=== PATIENT | female | born 1940 | race Caucasian/White ===

== ENCOUNTER 2016-12-21 21:01 | Inpatient (IN) | payer MEDICARE, BC ==
[~2016-12-21] VITALS: Ht 170.2 cm; Wt 97.5 kg
[~2016-12-21 21:01] MED LIST: CARV12.52 PO; DOCU-25 PO; PARO10OR3 PO; Rivaroxaban PO
--- NOTE | 2016-12-21 21:25 | NUR ---
BLOOD DRAWN AND BLOOD CULTURES X 2 DRAWN.
--- NOTE | 2016-12-21 21:26 | NUR ---
CXR IN PROGRESS AT THE BEDSIDE.
[2016-12-21 21:30] LABS: BASOPHILS % (AUTO) 0.7 % (0.0-2.0); EOSINOPHILS # (AUTO) 0.4 /CMM (0.0-0.7); HEMATOCRIT 42 % (33-45); HEMOGLOBIN 14.3 g/dL (11.5-14.8); LYMPHOCYTES # (AUTO) 1.9 /CMM (0.8-4.8); LYMPHOCYTES % (AUTO) 31.3 % (20.0-44.0); MEAN CORPUSCULAR HEMOGLOBIN 32 PG (26.0-33.0); MEAN CORPUSCULAR HGB CONC 34 g/dl (31.0-36.0); MEAN CORPUSCULAR VOLUME 94 fL (82-100); MONOCYTES # (AUTO) 0.6 /CMM (0.1-1.30); MONOCYTES % (AUTO) 10.1 % (2.0-12.0); NEUTROPHILS # (AUTO) 3.2 /CMM (1.8-8.9); NEUTROPHILS % (AUTO) 50.9 % (43.0-81.0); PLATELET COUNT (AUTO) 187 /CMM (150-450); RDW COEFFICIENT OF VARIATION 11.3 (11.5-15.0); RED BLOOD CELL COUNT(AUTO) 4.45 MIL/uL (4.0-5.2); WHITE BLOOD COUNT (AUTO) 6.1 K/uL (4.3-11.0)
[2016-12-21] MEDS ORDERED: IV NS 0.9% 1,000 ML BAG IV ONE (21:30)
[2016-12-21 21:39] LABS: CALCIUM, SERUM 8.9 mg/dL (8.5-10.1); CARBON DIOXIDE 31 mmol/L (21-32); CHLORIDE 106 mmol/L (98-107); CREATININE 0.9 mg/dL (0.6-1.3); GLUCOSE 137 mg/dL (74-106); SODIUM SERUM 139 mmol/L (136-145); UREA NITROGEN, BLOOD 12 mg/dL (7-18)
[2016-12-21 21:44] LABS: PROTHROMBIN TIME 10.4 SECS (9.5-12.7)
[2016-12-21] MEDS ORDERED: IV SET PRIMARY 1 EA INFUS.SET MC ONE (21:45)
[2016-12-21] MEDS ORDERED: IV NS 0.9% 1,000 ML ONE (21:45)
[2016-12-21 21:52] LABS: ALANINE AMINOTRANSFERASE 29 U/L (12-78); ALBUMIN 3.3 g/dL (3.4-5.0); ALKALINE PHOSPHATASE 87 U/L (46-116); ASPARTATE AMINOTRANSFERASE 21 U/L (15-37); B-TYPE NATRIURETIC PEPTIDE 33 PG/ML (0-125); BILIRUBIN,DIRECT 0.1 mg/dL (0.0-0.2); BILIRUBIN,TOTAL 0.5 mg/dL (0.2-1.0); TOTAL PROTEIN, SERUM 6.5 g/dL (6.4-8.2)
--- NOTE | 2016-12-21 22:20 | NUR ---
CALLED NURSING OFFICE SERVICES CLERK FOR M/S BED
--- NOTE | 2016-12-21 22:25 | NUR ---
CALLED NURSING NAMED ACCOUNT EXECUTIVE FOR TELE BED
--- NOTE | 2016-12-21 22:27 | NUR ---
PT WILL GO TO BED 326.2
[2016-12-21] MEDS ORDERED: IV SET PRIMARY PUMP SET 1 EA INFUS.SET MC ONE ×2 (22:35→23:44)
[2016-12-21] MEDS ORDERED: LEVOFLOXACIN 750 MG /D5W 150ML 150 ML IV ONE (22:35)
[2016-12-21 22:51] LABS: APPEARANCE,URINE CLEAR (CLEAR); BILIRUBIN,URINE NEGATIVE (NEGATIVE); BLOOD, URINE NEGATIVE Ery/uL (NEGATIVE); COLOR,URINE YELLOW (YELLOW); KETONES,URINE NEGATIVE (NEGATIVE); LEUKOCYTE ESTERASE ,URINE TRACE (NEGATIVE); NITRITE, URINE NEGATIVE (NEGATIVE); PROTEIN,URINE NEGATIVE (NEGATIVE); UGLUCOSE NEGATIVE (NEGATIVE); UROBILINOGEN,URINE 0.2 EU/dL (0.2)
[2016-12-21] MEDS ORDERED: OLAN10TA3 PO (22:55)
[2016-12-21] MEDS ORDERED: ARIP15TA2 PO (22:55)
[2016-12-21] MEDS ORDERED: QUET300T2 PO (22:55)
[2016-12-21] MEDS ORDERED: TEMA15CA5 PO (22:55)
[2016-12-21] MEDS ORDERED: MECL-102 PO (22:55)
[2016-12-21] MEDS ORDERED: FOLI-65 PO (22:55)
[2016-12-21] MEDS ORDERED: GRALISE PO (22:55)
[2016-12-21] MEDS ORDERED: RAME8TAB9 PO (22:55)
[2016-12-21] MEDS ORDERED: LORA1TAB82 PO (22:55)
[2016-12-21] MEDS ORDERED: BENZ200C45 PO (22:55)
[2016-12-21] MEDS ORDERED: TIZA4CAP PO (22:55)
[2016-12-21] MEDS ORDERED: MIRT45TA PO (22:55)
[2016-12-21] MEDS ORDERED: EDOX30TA PO (22:55)
--- NOTE | 2016-12-21 22:55 | NUR ---
DR. ANDRES IS AT THE BEDSIDE.
--- NOTE | 2016-12-21 22:59 | NUR ---
REPORT GIVEN TO RAÚL GONZALEZ
[2016-12-21] MEDS ORDERED: LEVOFLOXACIN 750 MG /D5W 150ML PIGGYBACK IV ONE (23:00)
--- NOTE | 2016-12-21 23:00 | NUR ---
PT'S CAREGIVER ARRIVED BACK WITH MED LIST.
[2016-12-21] MEDS ORDERED: CAND4TAB3 PO (23:03)
[2016-12-21] MEDS ORDERED: CEPH-570 PO (23:03)
[2016-12-21 23:07] LABS: BACTERIA,URINE None seen /HPF (None Seen); RBC,URINE 0-2 /HPF (0-2); SQUAMOUS EPITHELIAL CELL,UR Rare /HPF (None Seen)
--- NOTE | 2016-12-21 23:15 | NUR ---
CASH GRAIN GROWER ADMIT PT ARRIVED ON UNIT WITH CAREGIVER. PT AAOX1-2. C/O SLIGHT CHEST DISCOMFORT 07/26 "DUE TO COUGH", NO S/S OF RESPIRATORY DISTRESS. ON 2 NC. NON-PRODUCTIVE COUGH NOTED. TELE SHOWS SR IN 60'S. ASSESSMENT COMPLETE. PT BEDBOUND, SKIN ISSUES NOTED. L WRIST #20 IV INTACT, TOLERATING ABX FROM E.R. WELL. ORIENTATED TO UNIT AND CALL LIGHT. WILL CONT TO MONITOR.
[2016-12-21] MEDS ORDERED: LORAZEPAM 1 MG TABLET PO PRN (23:30)
[2016-12-21] MEDS ORDERED: ENOXAPARIN SODIUM 40 MG/0.4 ML DISP.SYRIN SQ SCH (23:30)
[2016-12-21] MEDS ORDERED: ACETAMINOPHEN 325 MG TABLET PO PRN (23:30)
[2016-12-21] MEDS ORDERED: LEVOFLOXACIN 750 MG /D5W 150ML 750 MG in PREMIX 1 EA IV SCH (23:30)
[2016-12-21] MEDS ORDERED: HYDROCODONE/APAP 5/325MG 1 EACH TABLET PO PRN (23:30)
[2016-12-21] MEDS ORDERED: MAGNESIUM HYDROXIDE 30 ML UDC PO PRN (23:30)
[2016-12-21] MEDS ORDERED: Z GUARD REMEDY 2 OZ OINT TP PRN (23:30)
[2016-12-21] MEDS ORDERED: ONDANSETRON HCL/PF 4 MG/2 ML VIAL IVP PRN (23:30)
[2016-12-21] MEDS ORDERED: MECLIZINE HCL 25 MG TABLET PO PRN (23:30)
[2016-12-21] MEDS ORDERED: MAG HYDROX/AL HYDROX/SIMETH 30 ML UDC PO PRN (23:30)
[2016-12-21] MEDS ORDERED: ZOLPIDEM TARTRATE 5 MG TABLET PO PRN (23:30)
[2016-12-21] MEDS ORDERED: SECONDARY IV SET 1 EA INFUS.SET MC ONE (23:44)
[2016-12-22] MEDS ORDERED: Z GUARD REMEDY 2 OZ OINT TP PRN (04:30)
--- NOTE | 2016-12-22 06:50 | NUR ---
RN NOTE NO SIGNIFICANT CHANGES AT NIGHT. PT SLEPT WELL. NO C/O ANY PAIN OR DISCOMFORT AT THIS TIME. IV INTACT AND PATENT, TOLERATING FLUIDS WELL. TELE SHOWS SR IN 70'S. CAREGIVER AT BEDSIDE. NO DISTRESS NOTED. WILL F/U WITH DAY SHIFT FOR EZEQUIEL. CALL LIGHT IN REACH.
--- NOTE | 2016-12-22 07:30 | NUR ---
PT RECEIVED RESTING COMFORTABLY IN BED WITH EYES CLOSED. NO S/S OR C/O PAIN OR DISTRESS NOTED. SIDE RAILS UP X2, CALL LIGHT LEFT WITHIN REACH. WILL CONTINUE PLAN OF CARE.
[2016-12-22 07:34] LABS: BASOPHILS % (AUTO) 0.3 % (0.0-2.0); EOSINOPHILS # (AUTO) 0.5 /CMM (0.0-0.7); EOSINOPHILS % (AUTO) 7.5 % (0.0-6.0); HEMATOCRIT 38 % (33-45); HEMOGLOBIN 13.2 g/dL (11.5-14.8); LYMPHOCYTES # (AUTO) 2.2 /CMM (0.8-4.8); LYMPHOCYTES % (AUTO) 35.9 % (20.0-44.0); MEAN CORPUSCULAR HEMOGLOBIN 32 PG (26.0-33.0); MEAN CORPUSCULAR HGB CONC 35 g/dl (31.0-36.0); MEAN CORPUSCULAR VOLUME 94 fL (82-100); MONOCYTES # (AUTO) 0.7 /CMM (0.1-1.30); MONOCYTES % (AUTO) 10.8 % (2.0-12.0); NEUTROPHILS # (AUTO) 2.7 /CMM (1.8-8.9); NEUTROPHILS % (AUTO) 45.5 % (43.0-81.0); PLATELET COUNT (AUTO) 163 /CMM (150-450); RDW COEFFICIENT OF VARIATION 12.1 (11.5-15.0); RED BLOOD CELL COUNT(AUTO) 4.07 MIL/uL (4.0-5.2)
[2016-12-22 07:53] LABS: ALANINE AMINOTRANSFERASE 26 U/L (12-78); ALBUMIN 2.7 g/dL (3.4-5.0); ALKALINE PHOSPHATASE 74 U/L (46-116); ASPARTATE AMINOTRANSFERASE 16 U/L (15-37); BILIRUBIN,TOTAL 0.4 mg/dL (0.2-1.0); CALCIUM, SERUM 7.9 mg/dL (8.5-10.1); CARBON DIOXIDE 27 mmol/L (21-32); CHLORIDE 108 mmol/L (98-107); CREATININE 0.8 mg/dL (0.6-1.3); GLUCOSE 100 mg/dL (74-106); MAGNESIUM 1.9 mg/dL (1.8-2.4); PHOSPHORUS 2.9 mg/dL (2.5-4.9); POTASSIUM 3.9 mmol/L (3.5-5.1); SODIUM SERUM 143 mmol/L (136-145); TOTAL PROTEIN, SERUM 5.7 g/dL (6.4-8.2); UREA NITROGEN, BLOOD 9 mg/dL (7-18)
[2016-12-22 08:00] VITALS: BP 109/66
[2016-12-22] MEDS ORDERED: QUETIAPINE FUMARATE 100 MG TABLET PO SCH (09:00)
[2016-12-22] MEDS ORDERED: GABAPENTIN PO SCH (09:00)
[2016-12-22] MEDS: CANDESARTAN CILEXETIL 4 MG TABLET PO SCH (10:00)
[2016-12-22] MEDS ORDERED: PAROXETINE HCL 10 MG TABLET PO SCH (10:00)
[2016-12-22] MEDS ORDERED: SIMV40TA2 PO (10:33)
[2016-12-22] MEDS ORDERED: GABA-534 PO (10:33)
[2016-12-22] MEDS ORDERED: MIRTAZAPINE 15 MG TABLET PO SCH (10:57)
[2016-12-22] MEDS ORDERED: MIRTAZAPINE 45 MG TABLET PO SCH (11:00)
[2016-12-22] MEDS: ARIPIPRAZOLE 5 MG TABLET PO SCH (12:13)
[2016-12-22] MEDS: DOCUSATE SODIUM 100 MG CAPSULE PO SCH ×2 (12:14→17:27)
[2016-12-22] MEDS: OLANZAPINE 10 MG TABLET PO SCH (12:15)
[2016-12-22] MEDS: PANTOPRAZOLE 40 MG TABLET.DR PO SCH (12:15)
[2016-12-22] MEDS: LORAZEPAM 1 MG TABLET PO SCH (12:15)
[2016-12-22] MEDS: IV NS 0.9% 1,000 ML IV PRN (12:52)
[2016-12-22] MEDS ORDERED: CARV3.122 PO (15:51)
[2016-12-22 16:00] VITALS: BP 138/74
[2016-12-22] MEDS: ALBUTEROL FS 2.5 MG/0.5 ML VIAL.NEB NEB SCH ×2 (16:27→19:49)
[2016-12-22] MEDS: ACETYLCYSTEINE 10% SOLN 400 MG/4 ML VIAL NEB SCH (16:27)
[2016-12-22] MEDS: IPRATROPIUM NEB FS 0.5 MG/2.5 ML AMPUL.NEB NEB SCH ×2 (16:27→19:49)
[2016-12-22] MEDS ORDERED: RIVAROXABAN PO SCH (17:00)
[2016-12-22] MEDS: ROZEREM 8 MG PO SCH (17:27)
[2016-12-22] MEDS: QUETIAPINE FUMARATE 100 MG TABLET PO SCH (17:27)
[2016-12-22] MEDS: GABAPENTIN 300 MG CAPSULE PO SCH (17:27)
[2016-12-22] MEDS ORDERED: SAVAYSA 30 MG PO SCH (19:00)
--- NOTE | 2016-12-22 19:47 | NUR ---
CHANGE OF SHIFT REPORT PT RESTING COMFORTABLY IN BED WITH EYES CLOSED. NO S/S OR C/O PAIN OR DISTRESS NOTED. SIDE RAILS UP X2, CALL LIGHT LEFT WITHIN REACH. PT KEPT CLEAN, DRY, AND COMFORTABLE. NO SIGNIFICANT CHANGES SINCE PREVIOUS SHIFT. REPORT GIVEN TO GALLO OLSEN.
[2016-12-22 20:00] VITALS: BP 111/58
--- NOTE | 2016-12-22 20:00 | NUR ---
MS OPENING NOTES: RECEIVED PT RESTING COMFORTABLY IN BED. RESPIRATION EVEN AND UNLABORED. NO S/S OR C/O PAIN OR DISTRESS NOTED. IVF ON LEFT WRIST #20 NS @75 ML/HR. PATENT AND INTACT. INFUSING WELL. KEPT CLEAN AND DRY AT ALL TIMES. BED IN LOW AND LOCKED POSITION. SIDERAILS UPX2. CALL LIGHT WITHIN REACH. WILL CONTINUE TO MONITOR.
[2016-12-22] MEDS: SAVAYSA 60 MG PO SCH (21:46)
[2016-12-22] MEDS: MIRTAZAPINE 15 MG TABLET PO SCH (21:47)
[2016-12-22] MEDS: BENZONATATE 100 MG CAPSULE PO SCH (21:47)
[2016-12-22] MEDS: TIZANIDINE HCL 4 MG TABLET PO SCH (21:47)
[2016-12-22] MEDS: PAROXETINE HCL 10 MG TABLET PO SCH (21:47)
[2016-12-22] MEDS: SIMVASTATIN 40 MG TABLET PO SCH (21:48)
[2016-12-22] MEDS: TEMAZEPAM 15 MG CAPSULE PO SCH (21:48)
[2016-12-22] MEDS: LEVOFLOXACIN 750 MG /D5W 150ML 750 MG in PREMIX 1 EA IV SCH (22:27)
[2016-12-23] MEDS: ACETYLCYSTEINE 10% SOLN 400 MG/4 ML VIAL NEB SCH ×3 (00:08→14:30)
[2016-12-23] MEDS: IV NS 0.9% 1,000 ML IV PRN ×2 (02:12→17:00)
--- NOTE | 2016-12-23 06:45 | NUR ---
MS CLOSING NOTES: PT RESTING COMFORTABLY IN BED. RESPIRATION EVEN AND UNLABORED. NO SOB. NO S/S OR C/O PAIN OR DISTRESS NOTED. IVF ON LEFT WRIST #20 NS @75 ML/HR. PATENT AND INTACT. INFUSING WELL. KEPT CLEAN AND DRY AT ALL TIMES. BED IN LOW AND LOCKED POSITION. SIDERAILS UPX2. CALL LIGHT WITHIN REACH. WILL ENDORSE TO NEXT SHIFT NURSE FOR CONTINUITY OF CARE.
--- NOTE | 2016-12-23 07:33 | NUR ---
RN OPENING NOTES RECEIVED PATIENT IN BED, AWAKE, HEAD OF BED ELEVATED, NO SOB OR DISTRESS NOTED, ON O2 @ 2LPM VIA NC AND TOLERATED WELL. A/O X 1-2, VERBALLY RESPONSIVE AND ABLE TO MAKE NEEDS KNOWN. IV INTACT AND PATENT. KEPT PATIENT IN BED, CALL LIGHT WITHIN PATIENT REACH. WILL CONTINUE TO MONITOR ACCORDINGLY.
[2016-12-23 07:38] LABS: BASOPHILS % (AUTO) 0.3 % (0.0-2.0); EOSINOPHILS # (AUTO) 0.4 /CMM (0.0-0.7); EOSINOPHILS % (AUTO) 5.6 % (0.0-6.0); HEMATOCRIT 39 % (33-45); LYMPHOCYTES % (AUTO) 29.9 % (20.0-44.0); MEAN CORPUSCULAR HEMOGLOBIN 32 PG (26.0-33.0); MEAN CORPUSCULAR HGB CONC 34 g/dl (31.0-36.0); MEAN CORPUSCULAR VOLUME 95 fL (82-100); MONOCYTES # (AUTO) 0.6 /CMM (0.1-1.30); NEUTROPHILS # (AUTO) 3.7 /CMM (1.8-8.9); NEUTROPHILS % (AUTO) 55.2 % (43.0-81.0); PLATELET COUNT (AUTO) 167 /CMM (150-450); RED BLOOD CELL COUNT(AUTO) 4.05 MIL/uL (4.0-5.2); WHITE BLOOD COUNT (AUTO) 6.8 K/uL (4.3-11.0)
[2016-12-23 07:52] LABS: CALCIUM, SERUM 8.2 mg/dL (8.5-10.1); CARBON DIOXIDE 29 mmol/L (21-32); CHLORIDE 109 mmol/L (98-107); CREATININE 0.9 mg/dL (0.6-1.3); GLUCOSE 106 mg/dL (74-106); MAGNESIUM 1.8 mg/dL (1.8-2.4); SODIUM SERUM 144 mmol/L (136-145); UREA NITROGEN, BLOOD 7 mg/dL (7-18)
[2016-12-23 08:00] VITALS: BP 121/71
[2016-12-23] MEDS: IPRATROPIUM NEB FS 0.5 MG/2.5 ML AMPUL.NEB NEB SCH ×3 (08:20→19:30)
[2016-12-23] MEDS: ALBUTEROL FS 2.5 MG/0.5 ML VIAL.NEB NEB SCH ×3 (08:20→19:30)
[2016-12-23] MEDS: OLANZAPINE 10 MG TABLET PO SCH (09:36)
[2016-12-23] MEDS: PANTOPRAZOLE 40 MG TABLET.DR PO SCH (09:36)
[2016-12-23] MEDS: DOCUSATE SODIUM 100 MG CAPSULE PO SCH ×2 (09:36→17:02)
[2016-12-23] MEDS: LORAZEPAM 1 MG TABLET PO SCH (09:37)
[2016-12-23] MEDS: CANDESARTAN CILEXETIL 4 MG TABLET PO SCH (09:37)
[2016-12-23] MEDS: ARIPIPRAZOLE 5 MG TABLET PO SCH (09:37)
[2016-12-23] MEDS: MULTIPLE VIT/MINERALS 1 EA TABLET PO SCH (09:38)
[2016-12-23] MEDS: TIZANIDINE HCL 4 MG TABLET PO SCH ×2 (09:41→21:15)
--- NOTE | 2016-12-23 09:46 | NUR ---
WOUND CARE CONSULT: PT ADAMANTLY REFUSED SKIN ASSESSMENT. PT NOTED TO BE ON COMFORT GEL MATTRESS. ZABRINA SCORE CURRENTLY 14. HEELS FLOATED. ALL SKIN PROTECTION MEASURES DISCUSSED WITH NURSING STAFF. WILL SEE PT PT CONDITION PERMITS.
--- NOTE | 2016-12-23 10:05 | NUR ---
RN NOTES PATIENT REFUSED TO BE TOUCH FOR THE WOUND CONSULT.
[2016-12-23] MEDS ORDERED: SENNOSIDES 8.6 MG TABLET PO PRN (10:30)
[2016-12-23] MEDS ORDERED: BISACODYL (5 MG) 5 MG TABLET.DR PO PRN (10:30)
[2016-12-23] MEDS ORDERED: BISACODYL (5 MG) 5 MG TABLET.DR PO ONE (10:30)
[2016-12-23 16:00] VITALS: BP 137/78
[2016-12-23] MEDS: QUETIAPINE FUMARATE 100 MG TABLET PO SCH (17:02)
[2016-12-23] MEDS: SAVAYSA 60 MG PO SCH (17:02)
[2016-12-23] MEDS: GABAPENTIN 300 MG CAPSULE PO SCH (17:02)
[2016-12-23] MEDS: ROZEREM 8 MG PO SCH (17:03)
--- NOTE | 2016-12-23 19:17 | NUR ---
RN CLOSING NOTES ALL NEEDS PROVIDED, ATTENDED, AND ANTICIPATED. KEPT PATIENT CLEAN AND COMFORTABLE IN BED. CALL LIGHT WITHIN PATIENT REACH, WILL CONTINUE TO MONITOR ACCORDINGLY. ENDORSED TO NEXT SHIFT RN TO CONTINUE CARE
--- NOTE | 2016-12-23 20:01 | NUR ---
MS OPENING NOTES: RECEIVED PT RESTING COMFORTABLY IN BED WITH CAREGIVER ON BEDSIDE. RESPIRATION EVEN AND UNLABORED. NO S/S OR C/O PAIN OR DISTRESS NOTED. IVF ON LEFT WRIST #20 NS @75 ML/HR. PATENT AND INTACT. KEPT CLEAN AND DRY AT ALL TIMES. BED IN LOW AND LOCKED POSITION. SIDERAILS UPX2. CALL LIGHT WITHIN REACH. WILL CONTINUE TO MONITOR.
[2016-12-23] MEDS: MIRTAZAPINE 15 MG TABLET PO SCH (21:10)
[2016-12-23] MEDS: BENZONATATE 100 MG CAPSULE PO SCH (21:10)
[2016-12-23] MEDS: SIMVASTATIN 40 MG TABLET PO SCH (21:10)
[2016-12-23] MEDS: TEMAZEPAM 15 MG CAPSULE PO SCH (21:11)
[2016-12-23] MEDS: PAROXETINE HCL 10 MG TABLET PO SCH (21:11)
[2016-12-23 21:51] VITALS: BP 125/62
[2016-12-23] MEDS: LEVOFLOXACIN 750 MG /D5W 150ML 750 MG in PREMIX 1 EA IV SCH (23:58)
[2016-12-24] MEDS ORDERED: SECONDARY IV SET 1 EA INFUS.SET MC ONE (00:11)
--- NOTE | 2016-12-24 05:53 | NUR ---
MS CLOSING NOTES: PT IS IN BED SLEEPING. RESPIRATION EVEN AND UNLABORED. NO SOB. NO S/S OR C/O PAIN OR DISTRESS NOTED. IVF ON LEFT WRIST #20 NS @75 ML/HR. PATENT AND INTACT. INFUSING WELL. KEPT CLEAN AND DRY AT ALL TIMES. BED IN LOW AND LOCKED POSITION. SIDERAILS UPX2. CALL LIGHT WITHIN REACH. WILL ENDORSE TO NEXT SHIFT NURSE FOR CONTINUITY OF CARE.
[2016-12-24] MEDS: IV NS 0.9% 1,000 ML IV PRN (06:15)
--- NOTE | 2016-12-24 07:45 | NUR ---
RN MS NOTES PT IN BED, SLEEPING, NO SIGN OF PAIN OR DISTRESS, BREATHING PATTERN NORMAL AND NON LABORED, CALL LIGHT WITHIN REACH, IV FLUIDS INFUSING WELL.
[2016-12-24 08:00] VITALS: BP 118/71
[2016-12-24] MEDS: ALBUTEROL FS 2.5 MG/0.5 ML VIAL.NEB NEB SCH ×4 (08:02→22:36)
[2016-12-24] MEDS: IPRATROPIUM NEB FS 0.5 MG/2.5 ML AMPUL.NEB NEB SCH ×4 (08:02→22:37)
[2016-12-24] MEDS: ACETYLCYSTEINE 10% SOLN 400 MG/4 ML VIAL NEB SCH ×4 (08:02→22:37)
[2016-12-24] MEDS: CANDESARTAN CILEXETIL 4 MG TABLET PO SCH ×2 (09:00→09:34)
[2016-12-24] MEDS: ROZEREM 8 MG PO SCH (09:33)
[2016-12-24] MEDS: TIZANIDINE HCL 4 MG TABLET PO SCH ×2 (09:34→21:23)
[2016-12-24] MEDS: MULTIPLE VIT/MINERALS 1 EA TABLET PO SCH (09:34)
[2016-12-24] MEDS: OLANZAPINE 10 MG TABLET PO SCH (09:34)
[2016-12-24] MEDS: ARIPIPRAZOLE 5 MG TABLET PO SCH (09:34)
[2016-12-24] MEDS: PANTOPRAZOLE 40 MG TABLET.DR PO SCH (09:34)
[2016-12-24] MEDS: DOCUSATE SODIUM 100 MG CAPSULE PO SCH ×2 (09:34→17:14)
[2016-12-24] MEDS: LORAZEPAM 1 MG TABLET PO SCH (09:34)
[2016-12-24] MEDS ORDERED: BISACODYL SUPP (10 MG) 10 MG/SUPP.RECT SUPP.RECT RC PRN (10:30)
--- NOTE | 2016-12-24 11:00 | NUR ---
RN MS NOTES PT IN BED, AWAKE, ALERT AND VERBALLY RESPONSIVE, NO COMPLAINT OF PAIN, NOT IN DISTRESS, CAREGIVER AT BEDSIDE, SEEN BY [employer] M[employer]GAGE SERVICING SPECIALIST, PLAN OF CARE DISCUSSED WITH PT AND PT'S , VERBALIZED UNDERSTANDING, CALL LIGHT WITHIN REACH, NEEDS ATTENDED.
[2016-12-24 16:00] VITALS: BP 109/63
[2016-12-24] MEDS: GABAPENTIN 300 MG CAPSULE PO SCH (17:14)
[2016-12-24] MEDS: QUETIAPINE FUMARATE 100 MG TABLET PO SCH (17:14)
[2016-12-24] MEDS: SAVAYSA 60 MG PO SCH (17:16)
--- NOTE | 2016-12-24 18:10 | NUR ---
RN MS NOTES PT IN BED, AWAKE, ALERT AND ORIENTED, NOT IN PAIN OR DISTRESS, RESPIRATIONS NORMAL AND NOT LABORED, BEING ASSISTED BY CAREGIVER WITH DINNER, PT ABLE TO HAVE BOWEL MOVEMENT TODAY, IV FLUIDS INFUSING WELL, CALL LIGHT WITHIN REACH, PM MEDS GIVEN ORDERED, ALL NEEDS ATTENDED.
[2016-12-24 20:00] VITALS: BP 133/61
[2016-12-24] MEDS: SIMVASTATIN 40 MG TABLET PO SCH (21:23)
[2016-12-24] MEDS: BENZONATATE 100 MG CAPSULE PO SCH (21:23)
[2016-12-24] MEDS: PAROXETINE HCL 10 MG TABLET PO SCH (21:23)
[2016-12-24] MEDS: TEMAZEPAM 15 MG CAPSULE PO SCH (21:24)
[2016-12-24] MEDS: MIRTAZAPINE 15 MG TABLET PO SCH (21:24)
[2016-12-24] MEDS: LEVOFLOXACIN 750 MG /D5W 150ML 750 MG in PREMIX 1 EA IV SCH (23:47)
[2016-12-25] MEDS: IV NS 0.9% 1,000 ML IV PRN (06:26)
--- NOTE | 2016-12-25 07:41 | NUR ---
RN MS NOTES PT IN BED, ASLEEP, EASY TO AROUSE, ALERT AND ORIENTED, NO COMPLAINT OF PAIN OR ANY DISCOMFORT, RESPIRATIONS EVEN AND NOT LABORED, CALL LIGHT WITHIN REACH, CAREGIVER AT BEDSIDE, IV FLUIDS INFUSING WELL, KEPT WARM AND COMFORTABLE.
[2016-12-25 08:00] VITALS: BP 128/72
[2016-12-25] MEDS: IPRATROPIUM NEB FS 0.5 MG/2.5 ML AMPUL.NEB NEB SCH ×3 (08:03→20:42)
[2016-12-25] MEDS: ACETYLCYSTEINE 10% SOLN 400 MG/4 ML VIAL NEB SCH ×3 (08:03→23:34)
[2016-12-25] MEDS: ALBUTEROL FS 2.5 MG/0.5 ML VIAL.NEB NEB SCH ×3 (08:03→20:42)
[2016-12-25] MEDS: TIZANIDINE HCL 4 MG TABLET PO SCH ×2 (09:54→21:51)
[2016-12-25] MEDS: ROZEREM 8 MG PO SCH (09:54)
[2016-12-25] MEDS: OLANZAPINE 10 MG TABLET PO SCH (09:55)
[2016-12-25] MEDS: MULTIPLE VIT/MINERALS 1 EA TABLET PO SCH (09:55)
[2016-12-25] MEDS: LORAZEPAM 1 MG TABLET PO SCH (09:55)
[2016-12-25] MEDS: CANDESARTAN CILEXETIL 4 MG TABLET PO SCH (09:55)
[2016-12-25] MEDS: DOCUSATE SODIUM 100 MG CAPSULE PO SCH ×2 (09:55→17:18)
[2016-12-25] MEDS: PANTOPRAZOLE 40 MG TABLET.DR PO SCH (09:56)
[2016-12-25] MEDS: ARIPIPRAZOLE 5 MG TABLET PO SCH (09:56)
--- NOTE | 2016-12-25 13:11 | NUR ---
RN MS NOTES PT IN BED, AWAKE, ALERT AND ORIENTED, DENIES PAIN, STILL WITH PRODUCTIVE COUGH, NOT IN DISTRESS, CAREGIVER AT BEDSIDE, SEEN BY JUMANA FINGERPRINT CLERK, PLAN OF CARE DISCUSSED WITH PT, VERBALIZED UNDERSTANDING, ORDERS MADE AND CARRIED OUT, ASSISTED WITH TURNING AND REPOSITIONING, NEEDS ATTENDED.
[2016-12-25 16:00] VITALS: BP 116/70
[2016-12-25] MEDS: SAVAYSA 60 MG PO SCH (17:18)
[2016-12-25] MEDS: QUETIAPINE FUMARATE 100 MG TABLET PO SCH (17:18)
[2016-12-25] MEDS: GABAPENTIN 300 MG CAPSULE PO SCH (17:18)
--- NOTE | 2016-12-25 18:45 | NUR ---
RN MS NOTES PT IN BED, RESTING, ALERT AND ORIENTED, DENIES PAIN, NOT IN DISTRESS, KEPT HOB ELEVATED, IV FLUIDS INFUSING WELL, CALL LIGHT WITHIN REACH, CAREGIVER AT BEDSIDE, PM MEDS GIVEN, ASSISTED WITH ADL'S, PM CARE RENDERED, ALL NEEDS ATTENDED.
--- NOTE | 2016-12-25 19:30 | NUR ---
MS/RN OPENING NOTES PT ASLEEP, EASILY AROUSABLE TO NAME/TOUCH. ON 2LPM O2 VIA NC, BREATHING EVEN AND UNLABORED. NO FACIAL GRIMACING OR S/S OF SOB, PAIN OR DISTRESS NOTED. CAREGIVER AT BEDSIDE. IV TO LEFT WRIST PATENT AND INTACT RUNNING IVF ORDERED. BED IN LOW/LOCKED POSITION WITH CALL LIGHT IN REACH. WILL CONTINUE TO MONITOR
[2016-12-25 20:00] VITALS: BP 105/75
[2016-12-25] MEDS: BENZONATATE 100 MG CAPSULE PO SCH (21:52)
[2016-12-25] MEDS: PAROXETINE HCL 10 MG TABLET PO SCH (21:52)
[2016-12-25] MEDS: SIMVASTATIN 40 MG TABLET PO SCH (21:53)
[2016-12-25] MEDS: MIRTAZAPINE 15 MG TABLET PO SCH (21:53)
[2016-12-25] MEDS: TEMAZEPAM 15 MG CAPSULE PO SCH (21:58)
[2016-12-25] MEDS ORDERED: IV SET PRIMARY PUMP SET 1 EA INFUS.SET MC ONE (23:14)
[2016-12-25] MEDS ORDERED: SECONDARY IV SET 1 EA INFUS.SET MC ONE (23:15)
[2016-12-25] MEDS: LEVOFLOXACIN 750 MG /D5W 150ML 750 MG in PREMIX 1 EA IV SCH (23:16)
[2016-12-26] MEDS: IV NS 0.9% 1,000 ML IV PRN (04:59)
--- NOTE | 2016-12-26 07:39 | NUR ---
RN MS NOTES RECEIVED PATIENT IN BED, NO APPARENT DISTRESS NOTED, NO SOB, NO DISCOMFORT NOTED. A/O X 1-2, VERBALLY RESPONSIVE, SITTER AT BED SIDE. IV LINE ON LEFT WRIST PATENT, INFUSING NS AT 75ML/HR. ON 2L O2, VIA NC CANULA SATURATING AT 95%. ALL NEEDS MET, KEPT CLEAN AND DRY.
--- NOTE | 2016-12-26 07:44 | NUR ---
MS/RN CLOSING NOTES PT ASLEEP, AROUSABLE TO NAME/TOUCH. REMAINS ON 2LPM O2 VIA NC, BREATHING EVEN AND UNLABORED. DENIES PAIN, NO S/S OF SOB OR DISTRESS NOTED. NON PRODUCTIVE COUGH NOTED DURING SHIFT. BREATHING TX'S PROVIDED. CAREGIVER REMAINS AT BEDSIDE. IV TO LEFT WRIST PATENT AND INTACT RUNNING IVF ORDERED. TURNED/REPOSITIONED PT Q2H, EXTREMITIES OFFLOADED. BED IN LOW/LOCKED POSITION WITH CALL LIGHT IN REACH. BED RAILS UPX2. MADE PT COMFORTABLE THROUGHOUT SHIFT. ALL NEEDS MET AND ATTENDED. ENDORSED TO AM SHIFT EZEQUIEL.
[2016-12-26 08:00] VITALS: BP 157/93
[2016-12-26] MEDS: ACETYLCYSTEINE 10% SOLN 400 MG/4 ML VIAL NEB SCH ×3 (08:27→23:26)
[2016-12-26] MEDS: ALBUTEROL FS 2.5 MG/0.5 ML VIAL.NEB NEB SCH ×3 (08:27→20:05)
[2016-12-26] MEDS: IPRATROPIUM NEB FS 0.5 MG/2.5 ML AMPUL.NEB NEB SCH ×3 (08:27→20:05)
[2016-12-26] MEDS: OLANZAPINE 10 MG TABLET PO SCH (08:59)
[2016-12-26] MEDS: CANDESARTAN CILEXETIL 4 MG TABLET PO SCH (08:59)
[2016-12-26] MEDS: PANTOPRAZOLE 40 MG TABLET.DR PO SCH (08:59)
[2016-12-26] MEDS: LORAZEPAM 1 MG TABLET PO SCH (09:00)
[2016-12-26] MEDS: ROZEREM 8 MG PO SCH (09:00)
[2016-12-26] MEDS: ARIPIPRAZOLE 5 MG TABLET PO SCH (09:00)
[2016-12-26] MEDS: DOCUSATE SODIUM 100 MG CAPSULE PO SCH ×2 (09:00→16:29)
[2016-12-26] MEDS: MULTIPLE VIT/MINERALS 1 EA TABLET PO SCH (09:00)
[2016-12-26] MEDS: TIZANIDINE HCL 4 MG TABLET PO SCH ×2 (09:00→21:41)
--- NOTE | 2016-12-26 09:30 | NUR ---
RN MS NOTES PATIENT REFUSED MED, PER [employer] BOSS PATIENT TAKES ROZEREM AT NIGHT.
[2016-12-26] MEDS ORDERED: FUROSEMIDE 20 MG/2 ML VIAL IV ONE (10:00)
[2016-12-26 16:00] VITALS: BP 146/79
[2016-12-26] MEDS: SAVAYSA 60 MG PO SCH (16:28)
[2016-12-26] MEDS: QUETIAPINE FUMARATE 100 MG TABLET PO SCH (16:29)
[2016-12-26] MEDS: GABAPENTIN 300 MG CAPSULE PO SCH (17:52)
--- NOTE | 2016-12-26 19:24 | NUR ---
MS rn closing notes All needs provided, attended, and anticipated, kept patient clean and comfortable in bed, call light with in patient reach, endorsed to next shift to continue care.
--- NOTE | 2016-12-26 19:37 | NUR ---
ms/rn opening notes received patient in bed, awake, alertx3 . wild animal caretaker at bedside. monitoring for any s/s of sob or distress. verbalize need of suction. provide suctioning will continue to monitor. call lights within reach. iv site patent. will continue to monitor.
[2016-12-26 20:00] VITALS: BP 97/58
[2016-12-26] MEDS: LEVOFLOXACIN (750 MG) 750 MG TABLET PO SCH (20:03)
[2016-12-26 20:33] VITALS: BP 97/58
[2016-12-26] MEDS: MIRTAZAPINE 15 MG TABLET PO SCH (21:29)
[2016-12-26] MEDS: BENZONATATE 100 MG CAPSULE PO SCH (21:30)
[2016-12-26] MEDS: PAROXETINE HCL 10 MG TABLET PO SCH (21:30)
[2016-12-26] MEDS: SIMVASTATIN 40 MG TABLET PO SCH (21:31)
[2016-12-26] MEDS: TEMAZEPAM 15 MG CAPSULE PO SCH (21:31)
--- NOTE | 2016-12-26 21:44 | NUR ---
temperature re check at 98
--- NOTE | 2016-12-27 06:34 | NUR ---
ms/rn closing notes patient in bed, asleep but arousable. require breathing tx and monitoring for any need for suction, on oxygen via nc, monitoring for any s/s of distress or discomfort. cooperative to care, able to sleep atleast 5 to 6 hours. call lights within reach, bed in lock position. will endorse to am rn regarding continuity of care. transitional care manager at bedside.
--- NOTE | 2016-12-27 07:20 | NUR ---
ms rn initial notes Received patient in bed, asleep, head of bed elevated no SOB or distress noted. On 02 @ 2lpm via NC and tolerated well. Alert and Oriented x 2, confused at times. 24 hr caregiver at bedside for constant monitoring. IV intact and patent, HL only. Kept patient clean and comfortable in bed, call light with in patient reach, will continue to monitor accordingly.
[2016-12-27] MEDS: IPRATROPIUM NEB FS 0.5 MG/2.5 ML AMPUL.NEB NEB SCH ×3 (07:32→20:24)
[2016-12-27] MEDS: ALBUTEROL FS 2.5 MG/0.5 ML VIAL.NEB NEB SCH ×3 (07:32→20:24)
[2016-12-27] MEDS: ACETYLCYSTEINE 10% SOLN 400 MG/4 ML VIAL NEB SCH ×3 (07:33→23:38)
[2016-12-27 08:00] VITALS: BP 88/48
[2016-12-27] MEDS: LORAZEPAM 1 MG TABLET PO SCH (08:39)
[2016-12-27] MEDS: DOCUSATE SODIUM 100 MG CAPSULE PO SCH ×2 (08:39→17:40)
[2016-12-27] MEDS: ARIPIPRAZOLE 5 MG TABLET PO SCH (08:39)
[2016-12-27] MEDS: CANDESARTAN CILEXETIL 4 MG TABLET PO SCH (08:40)
[2016-12-27] MEDS: ROZEREM 8 MG PO SCH (08:43)
[2016-12-27] MEDS: MULTIPLE VIT/MINERALS 1 EA TABLET PO SCH (08:47)
[2016-12-27] MEDS: PANTOPRAZOLE 40 MG TABLET.DR PO SCH (08:47)
[2016-12-27] MEDS: OLANZAPINE 10 MG TABLET PO SCH (08:47)
[2016-12-27] MEDS: TIZANIDINE HCL 4 MG TABLET PO SCH ×2 (08:48→22:32)
[2016-12-27 14:32] LABS: BASOPHILS % (AUTO) 0.2 % (0.0-2.0); EOSINOPHILS # (AUTO) 0.5 /CMM (0.0-0.7); EOSINOPHILS % (AUTO) 6.1 % (0.0-6.0); HEMATOCRIT 43 % (33-45); HEMOGLOBIN 14.5 g/dL (11.5-14.8); LYMPHOCYTES % (AUTO) 22.5 % (20.0-44.0); MEAN CORPUSCULAR HEMOGLOBIN 32 PG (26.0-33.0); MEAN CORPUSCULAR HGB CONC 34 g/dl (31.0-36.0); MEAN CORPUSCULAR VOLUME 94 fL (82-100); MONOCYTES # (AUTO) 0.8 /CMM (0.1-1.30); MONOCYTES % (AUTO) 9.1 % (2.0-12.0); NEUTROPHILS # (AUTO) 5.4 /CMM (1.8-8.9); NEUTROPHILS % (AUTO) 62.1 % (43.0-81.0); PLATELET COUNT (AUTO) 200 /CMM (150-450); RDW COEFFICIENT OF VARIATION 12.3 (11.5-15.0); WHITE BLOOD COUNT (AUTO) 8.8 K/uL (4.3-11.0)
[2016-12-27 14:44] LABS: CALCIUM, SERUM 8.8 mg/dL (8.5-10.1); CARBON DIOXIDE 33 mmol/L (21-32); CHLORIDE 102 mmol/L (98-107); CREATININE 2.6 mg/dL (0.6-1.3); GLUCOSE 116 mg/dL (74-106); POTASSIUM 3.9 mmol/L (3.5-5.1); SODIUM SERUM 140 mmol/L (136-145); UREA NITROGEN, BLOOD 14 mg/dL (7-18)
[2016-12-27 16:13] VITALS: BP 87/48
[2016-12-27] MEDS: GABAPENTIN 300 MG CAPSULE PO SCH (17:40)
[2016-12-27] MEDS: QUETIAPINE FUMARATE 100 MG TABLET PO SCH (17:40)
[2016-12-27] MEDS: SAVAYSA 60 MG PO SCH (17:41)
--- NOTE | 2016-12-27 19:33 | NUR ---
MS RN closing notes All needs provided, attended, and anticipated. Kept patient clean and comfortable in bed, call light with in reach, will continue to monitor. Endorsed to next shift RN to continue care.
[2016-12-27 20:00] VITALS: BP 87/48
--- NOTE | 2016-12-27 20:00 | NUR ---
MS/RN OPENING NOTES PATIENT IN BED, HOB ELEVATED, ASLEEP. NO S/S OF SOB OR DISTRESS. CAREGIVER AT BEDSIDE WILL PROVIDE CARE AND CONTINUE PLAN OF CARE FOR TONIGHT.BED IN LOCK POSITION. CALL LIGHTS WITHIN REACH. WILL MONITOR .
--- NOTE | 2016-12-27 21:00 | NUR ---
MS/RN NOTES DR COBB WAS INFORMED REGARDING PATIENT VITAL SIGN B/P IN LOW SIDE AT SBP BELOW 90 AT 87/48. INFORMED BASELINE FOR TODAY WAS BELOW 90'S. PATIENT DOES NOT DRINK FLUIDS PREFER 2 CAN OF COKE THE WHOLE DAY.ON MEDICATION THAT CAN LOWER B/P ASWELL. MADE AWARE AND ORDERED 1X ORDER OF IV BOLUS 500 NS .ORDER TO CARRY OUT.
[2016-12-27] MEDS ORDERED: IV SET PRIMARY PUMP SET 1 EA INFUS.SET MC ONE (21:16)
[2016-12-27] MEDS ORDERED: IV NS 0.9% 1,000 ML ONE (21:17)
[2016-12-27] MEDS: LEVOFLOXACIN (750 MG) 750 MG TABLET PO SCH (21:26)
[2016-12-27] MEDS ORDERED: IV NS 0.9% 500 ML IV ONE (21:30)
--- NOTE | 2016-12-27 22:27 | NUR ---
ms/rn notes b/p check at 100/58 w/ iv bolus running at 500cc/hr for total volume 500
[2016-12-27] MEDS: MIRTAZAPINE 15 MG TABLET PO SCH (22:30)
[2016-12-27] MEDS: PAROXETINE HCL 10 MG TABLET PO SCH (22:31)
[2016-12-27] MEDS: SIMVASTATIN 40 MG TABLET PO SCH (22:32)
[2016-12-27] MEDS: TEMAZEPAM 15 MG CAPSULE PO SCH (22:32)
[2016-12-27] MEDS: BENZONATATE 100 MG CAPSULE PO SCH (22:32)
[2016-12-28 02:26] VITALS: BP 87/48
--- NOTE | 2016-12-28 03:12 | NUR ---
student services coordinator/initial notes got report from another nurse Milly for continuity of care. checked pt seen in bed in semi fowlers position with side rails x2 up and sleeping at this time. not in any acute distress noted. respiration even and unlabored. caregiver sleeping at the bedside too. kept her warm and comfortable at all times. will continue to monitor.
--- NOTE | 2016-12-28 03:30 | NUR ---
ms/rn notes report given to rn for continuity of care.
[2016-12-28] MEDS: IPRATROPIUM NEB FS 0.5 MG/2.5 ML AMPUL.NEB NEB SCH ×3 (07:35→23:58)
[2016-12-28] MEDS: ACETYLCYSTEINE 10% SOLN 400 MG/4 ML VIAL NEB SCH ×3 (07:35→23:58)
[2016-12-28] MEDS: ALBUTEROL FS 2.5 MG/0.5 ML VIAL.NEB NEB SCH ×3 (07:35→23:58)
--- NOTE | 2016-12-28 07:36 | NUR ---
MS [place] OPERATOR CLOSING NOTES PT REMAINS SLEEPING COMFORTABLY IN BED WITHOUT ANY ACUTE DISTRESS NOTED. ALL DUE MEDS GIVEN . ALL NEEDS MET. STABLE ALBER THE NIGHT. CAREGIVER AT THE BEDSIDE. ENDORSE TO AM NURSE.
--- NOTE | 2016-12-28 07:56 | NUR ---
MS RN OPENING NOTE PATIENT IS ALERT AND ORIENTED x1-2. NO PAIN AT THIS TIME. NO SOB OR DISTRESS AT THIS TIME. CALL LIGHT WITHIN REACH. SAFETY MEASURES IMPLEMENTED. IV INTACT AND PATENT NO REDNESS OR SWELLING NOTED. CAREGIVER AT BEDSIDE. AWAITING PT EVAL FOR CLEARANCE. WILL CONTINUE TO MONITOR
[2016-12-28 08:00] VITALS: BP 105/61
[2016-12-28 08:05] LABS: BASOPHILS % (AUTO) 0.1 % (0.0-2.0); EOSINOPHILS # (AUTO) 0.4 /CMM (0.0-0.7); EOSINOPHILS % (AUTO) 5.6 % (0.0-6.0); HEMATOCRIT 42 % (33-45); HEMOGLOBIN 14.2 g/dL (11.5-14.8); LYMPHOCYTES # (AUTO) 1.5 /CMM (0.8-4.8); LYMPHOCYTES % (AUTO) 19.3 % (20.0-44.0); MEAN CORPUSCULAR HEMOGLOBIN 32 PG (26.0-33.0); MEAN CORPUSCULAR HGB CONC 34 g/dl (31.0-36.0); MEAN CORPUSCULAR VOLUME 95 fL (82-100); MONOCYTES # (AUTO) 0.8 /CMM (0.1-1.30); MONOCYTES % (AUTO) 10.5 % (2.0-12.0); NEUTROPHILS # (AUTO) 4.9 /CMM (1.8-8.9); NEUTROPHILS % (AUTO) 64.5 % (43.0-81.0); PLATELET COUNT (AUTO) 185 /CMM (150-450); RDW COEFFICIENT OF VARIATION 12.2 (11.5-15.0); RED BLOOD CELL COUNT(AUTO) 4.45 MIL/uL (4.0-5.2); WHITE BLOOD COUNT (AUTO) 7.6 K/uL (4.3-11.0)
[2016-12-28 08:18] LABS: CALCIUM, SERUM 8.9 mg/dL (8.5-10.1); CARBON DIOXIDE 34 mmol/L (21-32); CHLORIDE 102 mmol/L (98-107); CREATININE 2.8 mg/dL (0.6-1.3); GLUCOSE 118 mg/dL (74-106); MAGNESIUM 1.9 mg/dL (1.8-2.4); PHOSPHORUS 4.9 mg/dL (2.5-4.9); POTASSIUM 3.7 mmol/L (3.5-5.1); SODIUM SERUM 142 mmol/L (136-145); UREA NITROGEN, BLOOD 20 mg/dL (7-18)
[2016-12-28] MEDS: MULTIPLE VIT/MINERALS 1 EA TABLET PO SCH (08:57)
[2016-12-28] MEDS: PANTOPRAZOLE 40 MG TABLET.DR PO SCH (08:57)
[2016-12-28] MEDS: LORAZEPAM 1 MG TABLET PO SCH (08:57)
[2016-12-28] MEDS: TIZANIDINE HCL 4 MG TABLET PO SCH ×2 (08:57→22:00)
[2016-12-28] MEDS: ARIPIPRAZOLE 5 MG TABLET PO SCH (08:58)
[2016-12-28] MEDS: CANDESARTAN CILEXETIL 4 MG TABLET PO SCH (08:58)
[2016-12-28] MEDS: OLANZAPINE 10 MG TABLET PO SCH (08:58)
[2016-12-28] MEDS: DOCUSATE SODIUM 100 MG CAPSULE PO SCH ×2 (08:58→17:24)
[2016-12-28] MEDS: ROZEREM 8 MG PO SCH (09:02)
[2016-12-28] MEDS ORDERED: IV NS 0.9% 1,000 ML IV ONE (10:30)
[2016-12-28] MEDS ORDERED: FEE PK DOSING 1 MIN EA MC ONE (10:55)
[2016-12-28] MEDS ORDERED: DOSE PER PHARMACY (MD SPECIFY MEDICATION) 1 EA XX PRN (11:00)
[2016-12-28] MEDS ORDERED: IV SET PRIMARY PUMP SET 1 EA INFUS.SET MC ONE (11:28)
[2016-12-28] MEDS ORDERED: VANCOMYCIN 0.75 GM in IV D5W 250 ML IV SCH (12:00)
[2016-12-28 16:00] VITALS: BP 100/54
[2016-12-28] MEDS: SAVAYSA 60 MG PO SCH (17:24)
[2016-12-28] MEDS: GABAPENTIN 300 MG CAPSULE PO SCH (17:24)
[2016-12-28] MEDS: QUETIAPINE FUMARATE 100 MG TABLET PO SCH (17:24)
--- NOTE | 2016-12-28 17:55 | NUR ---
MS RN NOTE PATIENT REFUSING TO EAT DINNER. SHE TOLD MYSELF AND THE CAREGIVER THAT SHE PREFERS TO EAT [employer]. I EXPLAINED TO PATIENT NOT TO EAT OUTSIDE FOOD SINCE SHE IS ON CARDIAC DIET. PATIENT STILL REFUSED TO EAT DINNER ON TRAY, INFORMED CHARGE.
--- NOTE | 2016-12-28 18:34 | NUR ---
MS RN CLOSING NOTE PATIENT IS ALERT AND ORIENTED x1-2. NO PAIN AT THIS TIME. NO SOB OR DISTRESS NOTED. CALL LIGHT WITHIN REACH AT ALL TIMES. SAFETY MEASURES IMPLEMENTED. CAREGIVER AT BEDSIDE. ABLE TO COMMUNICATE NEEDS. IV INTACT AND PATENT, IV FLUIDS INFUSING AT THIS TIME. POSSIBLE DISCHARGE IN AM. WILL ENDORSE TO PHARMACY OPERATIONS MANAGER NURSE
--- NOTE | 2016-12-28 19:45 | NUR ---
RN OPENING NOTES RECEIVED REPORT FROM GUSTAVO RNPAOLO. FOUND Pt AWAKE RESTING IN BED. WITH PRIVATE CAREGIVER AT BEDSIDE. NO S/S OF ACUTE DISTRESS OR SOB NOTED. Pt IS A/OX1-2, VERBAL, ABLE TO MAKE NEEDS KNOWN. NO C/O PAIN AT THIS TIME. IV ACCESS ON L WRIST #20G, SL. SAFETY MEASURES IN PLACE. BED LOW, LOCKED, HOB ELEVATED, SIDE RAILS UP, CALL LIGHT AND BEDSIDE TABLE WITHIN REACH. WILL CONTINUE TO MONITOR Pt THROUGHOUT THE NIGHT FOR SAFETY.
[2016-12-28 20:00] VITALS: BP 96/63
[2016-12-28 21:00] VITALS: BP 96/63
[2016-12-28] MEDS: BENZONATATE 100 MG CAPSULE PO SCH (21:56)
[2016-12-28] MEDS: PAROXETINE HCL 10 MG TABLET PO SCH (21:56)
[2016-12-28] MEDS: SIMVASTATIN 40 MG TABLET PO SCH (21:56)
[2016-12-28] MEDS: TEMAZEPAM 15 MG CAPSULE PO SCH (22:00)
[2016-12-28] MEDS ORDERED: MIRTAZAPINE 15 MG TABLET PO SCH (22:00)
--- NOTE | 2016-12-29 06:35 | NUR ---
RN CLOSING NOTES NO SIGNIFICANT CHANGES NOTED DURING THE NIGHT. ALL NEEDS MET AND ATTENDED TO. NO S/S OF ACUTE DISTRESS OR SOB NOTED. SAFETY MEASURES IN PLACE. WILL ENDORSE TO DAYSHIFT RN FOR Pt's EZEQUIEL.
--- NOTE | 2016-12-29 07:15 | NUR ---
MS RN INITIAL NOTES REPORT RECEIVED AT THE BEDSIDE. PATIENT IS RESTING COMFORTABLY IN BED. NO SOB OR DISTRESS NOTED AT THIS TIME. PATIENT DENIES PAIN. BED IN A LOW POSITION, CALL LIGHT WITHIN PATIENT REACH, HOSPITALITY SERVICES MANAGER IS AT THE BEDSIDE. WILL CONTINUE TO MONITOR.
[2016-12-29] MEDS: ACETYLCYSTEINE 10% SOLN 400 MG/4 ML VIAL NEB SCH ×3 (07:35→23:19)
[2016-12-29] MEDS: ALBUTEROL FS 2.5 MG/0.5 ML VIAL.NEB NEB SCH ×4 (07:35→23:19)
[2016-12-29] MEDS: IPRATROPIUM NEB FS 0.5 MG/2.5 ML AMPUL.NEB NEB SCH ×3 (07:35→20:17)
[2016-12-29 07:56] LABS: BASOPHILS % (AUTO) 0.3 % (0.0-2.0); EOSINOPHILS # (AUTO) 0.5 /CMM (0.0-0.7); EOSINOPHILS % (AUTO) 7.3 % (0.0-6.0); HEMATOCRIT 40 % (33-45); HEMOGLOBIN 13.7 g/dL (11.5-14.8); LYMPHOCYTES # (AUTO) 1.6 /CMM (0.8-4.8); LYMPHOCYTES % (AUTO) 21.1 % (20.0-44.0); MEAN CORPUSCULAR HEMOGLOBIN 32 PG (26.0-33.0); MEAN CORPUSCULAR HGB CONC 34 g/dl (31.0-36.0); MEAN CORPUSCULAR VOLUME 94 fL (82-100); MONOCYTES # (AUTO) 0.8 /CMM (0.1-1.30); MONOCYTES % (AUTO) 10.6 % (2.0-12.0); NEUTROPHILS # (AUTO) 4.5 /CMM (1.8-8.9); NEUTROPHILS % (AUTO) 60.7 % (43.0-81.0); PLATELET COUNT (AUTO) 177 /CMM (150-450); RDW COEFFICIENT OF VARIATION 12.1 (11.5-15.0); RED BLOOD CELL COUNT(AUTO) 4.29 MIL/uL (4.0-5.2); WHITE BLOOD COUNT (AUTO) 7.4 K/uL (4.3-11.0)
[2016-12-29 08:00] VITALS: BP 116/63
[2016-12-29 08:17] LABS: CARBON DIOXIDE 33 mmol/L (21-32); CHLORIDE 105 mmol/L (98-107); CREATININE 1.5 mg/dL (0.6-1.3); GLUCOSE 123 mg/dL (74-106); MAGNESIUM 1.9 mg/dL (1.8-2.4); PHOSPHORUS 3.1 mg/dL (2.5-4.9); SODIUM SERUM 143 mmol/L (136-145); UREA NITROGEN, BLOOD 21 mg/dL (7-18)
[2016-12-29] MEDS: LORAZEPAM 1 MG TABLET PO SCH (08:28)
[2016-12-29] MEDS: MULTIPLE VIT/MINERALS 1 EA TABLET PO SCH (08:28)
[2016-12-29] MEDS: OLANZAPINE 10 MG TABLET PO SCH (08:28)
[2016-12-29] MEDS: TIZANIDINE HCL 4 MG TABLET PO SCH ×2 (08:28→21:40)
[2016-12-29] MEDS: ROZEREM 8 MG PO SCH (08:28)
[2016-12-29] MEDS: ARIPIPRAZOLE 5 MG TABLET PO SCH (08:28)
[2016-12-29] MEDS: DOCUSATE SODIUM 100 MG CAPSULE PO SCH ×2 (08:29→17:16)
[2016-12-29] MEDS: PANTOPRAZOLE 40 MG TABLET.DR PO SCH (08:29)
[2016-12-29] MEDS ORDERED: IV NS 0.9% 500 ML IV ONE (10:30)
[2016-12-29 11:55] LABS: APPEARANCE,URINE CLEAR (CLEAR); BILIRUBIN,URINE NEGATIVE (NEGATIVE); BLOOD, URINE NEGATIVE Ery/uL (NEGATIVE); COLOR,URINE YELLOW (YELLOW); CREATININE, URINE 80.6 MG/DL (30.0-125.0); KETONES,URINE NEGATIVE (NEGATIVE); LEUKOCYTE ESTERASE ,URINE TRACE (NEGATIVE); NITRITE, URINE NEGATIVE (NEGATIVE); PROTEIN,URINE NEGATIVE (NEGATIVE); UGLUCOSE NEGATIVE (NEGATIVE); UROBILINOGEN,URINE 0.2 EU/dL (0.2)
[2016-12-29 12:06] LABS: BACTERIA,URINE Rare /HPF (None Seen); RBC,URINE 0-2 /HPF (0-2); SQUAMOUS EPITHELIAL CELL,UR Few /HPF (None Seen)
[2016-12-29 13:08] LABS: EOSINOPHIL,URINE None Seen
[2016-12-29 16:00] VITALS: BP 131/61
[2016-12-29] MEDS: SAVAYSA 60 MG PO SCH (17:16)
[2016-12-29] MEDS: QUETIAPINE FUMARATE 100 MG TABLET PO SCH (17:16)
[2016-12-29] MEDS: GABAPENTIN 300 MG CAPSULE PO SCH (17:16)
--- NOTE | 2016-12-29 18:59 | NUR ---
MS RN CLOSING NOTES NO SIGNIFICANT CHANGES IN PATIENT CONDITION THROUGHOUT THE SHIFT. NO SOB OR DISTRESS NOTED AT THIS TIME. PATIENT DENIES PAIN UNLESS ON MOVEMENT. BED IN A LOW POSITION, CALL LIGHT WITHIN PATIENT REACH. WILL ENDORSE FOR EZEQUIEL.
[2016-12-29 20:00] VITALS: BP 106/66
--- NOTE | 2016-12-29 20:00 | NUR ---
MS [place] MACHINE OPERATOR INITIAL NOTES RECEIVED REPORT AND CHECKED PT SHES RESTING WITH EYES CLOSED BUT AROUSES TO TOUCH, NOT IN ANY ACUTE DISTRESS NOTED. BREATHING EVEN AND UNLABORED. WITH O2 AT 2 LITERS VIA NC. CAREGIVER AT THE BEDSIDE FOR SAFETY. KEPT HER WARM AND COMFORTABLE AT ALL TIMES. WILL CONTINUE TO MONITOR.PLACE CALL LIGHT AT REACH.
[2016-12-29] MEDS ORDERED: LEVOFLOXACIN (750 MG) 750 MG TABLET PO SCH (21:00)
[2016-12-29 21:19] VITALS: BP 106/66
[2016-12-29] MEDS: PAROXETINE HCL 10 MG TABLET PO SCH (21:39)
[2016-12-29] MEDS: SIMVASTATIN 40 MG TABLET PO SCH (21:39)
[2016-12-29] MEDS: BENZONATATE 100 MG CAPSULE PO SCH (21:40)
[2016-12-29] MEDS: TEMAZEPAM 15 MG CAPSULE PO SCH (22:00)
--- NOTE | 2016-12-30 | NUR ---
PRACTICE MANAGEMENT CONSULTANT/NOTES SLEEPING COMFORTABLY IN BED WITHOUT ANY RESTORIL LAST NIGHT. COUGH ONCE IN A WHILE DEEP SUCTION DONE ALSO BY RT ORDERED. KEPT HER WARM AND COMFORTABLE , NO SOB NOTED. WILL CONTINUE TO MONITOR.
--- NOTE | 2016-12-30 07:05 | NUR ---
MS ORANGE PICKING SUPERVISOR CLOSING NOTES PT AWAKE AT THIS TIME, NOT IN ANY ACUTE DISTRESS NOTED. STABLE ALBER THE NIGHT AND SLEPT WELL. ALL DUE MEDS GIVEN. MORNING CARE DONE WELL SKIN TREATMENT. Z-GUARD APPLIED TO [place] AREA. KEPT HER WARM AND COMFORTABLE AT ALL TIMES. REPOSITION HER FOR COMFORT. WILL ENDORSE TO AM NURSE FOR CONTINUITY OF CARE.
--- NOTE | 2016-12-30 07:27 | NUR ---
MS RN INITIAL NOTES REPORT RECEIVED AT THE BEDSIDE. PATIENT IS RESTING COMFORTABLY IN BED. NO SOB OR DISTRESS NOTED AT THIS TIME. PATIENT DENIES PAIN. BED IN A LOW POSITION, CALL LIGHT WITHIN PATIENT REACH. WILL CONTINUE TO MONITOR.
[2016-12-30 08:00] VITALS: BP 105/57
[2016-12-30 08:03] LABS: BASOPHILS % (AUTO) 0.4 % (0.0-2.0); EOSINOPHILS # (AUTO) 0.6 /CMM (0.0-0.7); EOSINOPHILS % (AUTO) 9.1 % (0.0-6.0); HEMATOCRIT 40 % (33-45); HEMOGLOBIN 13.4 g/dL (11.5-14.8); LYMPHOCYTES # (AUTO) 1.4 /CMM (0.8-4.8); LYMPHOCYTES % (AUTO) 21.5 % (20.0-44.0); MEAN CORPUSCULAR HEMOGLOBIN 32 PG (26.0-33.0); MEAN CORPUSCULAR HGB CONC 34 g/dl (31.0-36.0); MEAN CORPUSCULAR VOLUME 94 fL (82-100); MONOCYTES # (AUTO) 0.6 /CMM (0.1-1.30); MONOCYTES % (AUTO) 9.3 % (2.0-12.0); NEUTROPHILS # (AUTO) 3.8 /CMM (1.8-8.9); NEUTROPHILS % (AUTO) 59.7 % (43.0-81.0); PLATELET COUNT (AUTO) 179 /CMM (150-450); RDW COEFFICIENT OF VARIATION 12.5 (11.5-15.0); RED BLOOD CELL COUNT(AUTO) 4.19 MIL/uL (4.0-5.2); WHITE BLOOD COUNT (AUTO) 6.4 K/uL (4.3-11.0)
[2016-12-30] MEDS: DOCUSATE SODIUM 100 MG CAPSULE PO SCH (08:05)
[2016-12-30] MEDS: ARIPIPRAZOLE 5 MG TABLET PO SCH (08:05)
[2016-12-30] MEDS: MULTIPLE VIT/MINERALS 1 EA TABLET PO SCH (08:05)
[2016-12-30] MEDS: TIZANIDINE HCL 4 MG TABLET PO SCH (08:05)
[2016-12-30] MEDS: ROZEREM 8 MG PO SCH (08:05)
[2016-12-30] MEDS: PANTOPRAZOLE 40 MG TABLET.DR PO SCH (08:05)
[2016-12-30] MEDS: OLANZAPINE 10 MG TABLET PO SCH (08:06)
[2016-12-30] MEDS: LORAZEPAM 1 MG TABLET PO SCH (08:06)
[2016-12-30 08:40] LABS: CARBON DIOXIDE 33 mmol/L (21-32); CHLORIDE 107 mmol/L (98-107); CREATININE 1.3 mg/dL (0.6-1.3); GLUCOSE 116 mg/dL (74-106); MAGNESIUM 1.7 mg/dL (1.8-2.4); PHOSPHORUS 3.2 mg/dL (2.5-4.9); POTASSIUM 4.2 mmol/L (3.5-5.1); SODIUM SERUM 144 mmol/L (136-145); UREA NITROGEN, BLOOD 16 mg/dL (7-18)
[2016-12-30] MEDS: ALBUTEROL FS 2.5 MG/0.5 ML VIAL.NEB NEB SCH (09:03)
[2016-12-30] MEDS: IPRATROPIUM NEB FS 0.5 MG/2.5 ML AMPUL.NEB NEB SCH ×2 (09:03→14:29)
[2016-12-30] MEDS: ACETYLCYSTEINE 10% SOLN 400 MG/4 ML VIAL NEB SCH (09:04)
[2016-12-30] MEDS ORDERED: Magnesium 1GM/D5W 100ML PREMIX 100 ML IV SCH (12:30)
[2016-12-30] MEDS ORDERED: MAGNESIUM OXIDE 400 MG TABLET PO ONE (12:37)
--- NOTE | 2016-12-30 17:12 | NUR ---
MS DISTRICT CAPTAIN NOTES DISCHARGE INSTRUCTIONS GIVEN TO THE PATIENT AND CAREGIVER AND ABLE TO UNDERSTAND. PATIENT WAS UNABLE TO SIGN PAPERWORK, SO IT WAS SIGNED BY TWO RNS. ALL BELONGINGS ACCOUNTED FOR. VITALS CHECKED AND RECORDED. IV DISCONNECTED AND PRESSURE APPLIED. NO BLEEDING NOTED AT THE SITE. NO SOB OR DISTRESS NOTED AT THIS TIME. PATIENT DENIES PAIN. CALLED AND INFORMED HIM THAT THE PATIENT WOULD BE PICKED UP FROM THE HOSPITAL AROUND 1630 AND THAT SHE IS TO BE TRANSPORTED HOME. FLU AND PNEUMONIA VACCINES NOT GIVEN DUE TO BEING OUT OF SEASON AND PATIENT REFUSED. PATIENT LEFT IN STABLE CONDITION, VIA AMBULANCE TO HOME.
== END 2016-12-30 16:45 | disposition home health service (06) | DRG 193 ==
LOC: ER 21:03 → TELE 23:05 → MED 12-22 10:01
PROVIDERS: ADMIT Family Medicine; ATTEND Family Medicine
DX: J15.9 Unspecified bacterial pneumonia (principal); N17.0 Acute kidney failure with tubular necrosis; N39.0 Urinary tract infection, site not specified; D68.59 Other primary thrombophilia; I69.354 Hemiplegia and hemiparesis following cerebral infarction affecting left non-dominant side; I25.10 Atherosclerotic heart disease of native coronary artery without angina pectoris; F41.9 Anxiety disorder, unspecified; Z74.01 Bed confinement status; Z99.81 Dependence on supplemental oxygen; I10 Essential (primary) hypertension; E78.5 Hyperlipidemia, unspecified; F31.9 Bipolar disorder, unspecified; Z90.49 Acquired absence of other specified parts of digestive tract; I48.91 Unspecified atrial fibrillation
CPT/HCPCS: 31720; 36415; 71010-TC; 71250-TC; 76770-TC; 80048-TC; 80053-TC; 80076-TC; 81000-TC; 82570-TC; 83605-TC; 83735-TC; 83880; 84100-TC; 84300-TC; 85025-TC; 85730-TC; 87040-TC; 87070-TC; 87081-TC; 93307-TC; 94799-TC; 97001-TC; A4216; A4606; J1940; J1956; J3370; J7030; J7040; J7060; Z7610

== ENCOUNTER 2017-08-06 15:26 | Emergency (ER) | payer MEDICARE, BC ==
[~2017-08-06] VITALS: Ht 165.1 cm; Wt 84.9 kg
[~2017-08-06 15:26] MED LIST changes: +ARIP15TA3 PO; -CARV12.52 PO; +DOCU-141 PO; -DOCU-25 PO; +EDOX30TA PO; +FOLI-65 PO; +GABA-534 PO; +LORA-259 PO; +MECL-102 PO; +MIRT45TA PO; +OLAN10TA3 PO; +QUET300T2 PO; +RAME8TAB15 PO; -Rivaroxaban PO; +SIMV40TA2 PO; +TEMA15CA5 PO; +TIZA4CAP PO
[2017-08-06] MEDS ORDERED: methylPREDNISolone SOD SUCC 125 MG/2ML VIAL ONE (15:44)
--- NOTE | 2017-08-06 15:45 | NUR ---
AAOX3, BIB CAREGIVER FROM HOME C/O COUGH WITH CONGESTION AND VOMITING. RR IS EVEN AND UNLABORED WITH NAD NOTED. SKIN IS WARM AND DRY. PLACED ON MONITOR. WILL CONTINUOUSLY MONITOR THE PATIENT. AWAITING MD FOR EVAL.
[2017-08-06] MEDS ORDERED: IPRATROPIUM NEB FS 0.5 MG/2.5 ML AMPUL.NEB ONE (15:48)
[2017-08-06] MEDS ORDERED: ALBUTEROL FS 2.5 MG/3 ML VIAL.NEB ONE (15:48)
[2017-08-06 15:55] LABS: BASOPHILS # (AUTO) 0.3 /CMM (0.0-0.2); BASOPHILS % (AUTO) 1.9 % (0.0-2.0); EOSINOPHILS # (AUTO) 0.2 /CMM (0.0-0.7); EOSINOPHILS % (AUTO) 1.2 % (0.0-6.0); HEMATOCRIT 48 % (33-45); HEMOGLOBIN 16.3 g/dL (11.5-14.8); LYMPHOCYTES # (AUTO) 2.1 /CMM (0.8-4.8); LYMPHOCYTES % (AUTO) 13.9 % (20.0-44.0); MEAN CORPUSCULAR HEMOGLOBIN 32 PG (26.0-33.0); MEAN CORPUSCULAR HGB CONC 34 g/dl (31.0-36.0); MEAN CORPUSCULAR VOLUME 93 fL (82-100); MONOCYTES # (AUTO) 0.8 /CMM (0.1-1.30); NEUTROPHILS # (AUTO) 11.7 /CMM (1.8-8.9); PLATELET COUNT (AUTO) 327 /CMM (150-450); RED BLOOD CELL COUNT(AUTO) 5.18 MIL/uL (4.0-5.2); WHITE BLOOD COUNT (AUTO) 15.1 K/uL (4.3-11.0)
[2017-08-06] MEDS ORDERED: methylPREDNISolone SOD SUCC 125 MG/2ML VIAL IV ONE (16:00)
[2017-08-06] MEDS ORDERED: ALBUTEROL FS 2.5 MG/3 ML VIAL.NEB NEB ONE (16:00)
[2017-08-06] MEDS ORDERED: IPRATROPIUM NEB FS 0.5 MG/2.5 ML AMPUL.NEB NEB ONE (16:00)
[2017-08-06] MEDS ORDERED: IV NS 0.9% 500 ML BAG IV ONE (16:00)
[2017-08-06 16:05] LABS: CALCIUM, SERUM 9.1 mg/dL (8.5-10.1); CARBON DIOXIDE 29 mmol/L (21-32); CHLORIDE 103 mmol/L (98-107); GLUCOSE 133 mg/dL (74-106); POTASSIUM 4.3 mmol/L (3.5-5.1); SODIUM SERUM 139 mmol/L (136-145); UREA NITROGEN, BLOOD 15 mg/dL (7-18)
[2017-08-06 16:09] LABS: INR 0.97 (0.87-1.13)
[2017-08-06 16:13] LABS: TROPONIN I < 0.017 ng/mL (0.00-0.056)
[2017-08-06 16:18] LABS: ALANINE AMINOTRANSFERASE 26 U/L (12-78); ALBUMIN 3.7 g/dL (3.4-5.0); ALKALINE PHOSPHATASE 96 U/L (46-116); ASPARTATE AMINOTRANSFERASE 22 U/L (15-37); B-TYPE NATRIURETIC PEPTIDE 118 PG/ML (0-125); BILIRUBIN,DIRECT 0.1 mg/dL (0.0-0.2); BILIRUBIN,TOTAL 0.4 mg/dL (0.2-1.0); TOTAL PROTEIN, SERUM 7.6 g/dL (6.4-8.2)
--- NOTE | 2017-08-06 17:22 | NUR ---
IV removed. Catheter intact and site benign. Pressure and 4x4 applied to site. No bleeding noted.Patient discharged to home in stable condition. Written and verbal after care instructions given. Patient verbalizes understanding of instruction.
[2017-08-06 17:23] VITALS: BP 116/84
== END 2017-08-06 17:25 | disposition home or self-care (01) ==
LOC: ER 15:28
DX: J20.9 Acute bronchitis, unspecified (principal); I50.9 Heart failure, unspecified; I69.354 Hemiplegia and hemiparesis following cerebral infarction affecting left non-dominant side; I70.0 Atherosclerosis of aorta; Z79.01 Long term (current) use of anticoagulants; Z99.81 Dependence on supplemental oxygen
CPT/HCPCS: 36415; 71045; 80048; 80076; 83605; 83880; 84484; 85025; 85730; 87040 ×2; 87804; 93005; 94640; 96374; 99285; A4606; J2930; J7040; 87400; Z7610

== ENCOUNTER 2018-05-31 21:13 | Emergency (ER) | payer MEDICARE, BC ==
[~2018-05-31] VITALS: Ht 170.2 cm; Wt 79.8 kg
--- NOTE | 2018-05-31 21:15 | NUR ---
BIB PARAMEDICS FROM BOARD AND CARE C/O ABD PAIN, NAUSEA AND 1 EPISODE OF VOMITING COFFEE GROUND EMESIS. PT AAOX4 NO ACUTE DISTRESS NOTED, RESP EVEN AND UNLABORED. PLACE PT ON CARDIAC MONITORING, CONTINUOUS POX. PENDING ER MD STEWARD.
--- NOTE | 2018-05-31 21:20 | NUR ---
STARTED SL 18G TO L WRIST, BLOOD DRAWN AND SENT TO LAB.
[2018-05-31] MEDS ORDERED: ONDANSETRON HCL/PF 4 MG/2 ML VIAL ONE (21:58)
[2018-05-31] MEDS ORDERED: ONDANSETRON HCL/PF 4 MG/2 ML VIAL IVP ONE (22:00)
[2018-05-31] MEDS ORDERED: IV NS 0.9% 500 ML BAG IV ONE ×2 (22:00→23:00)
[2018-05-31 22:01] LABS: BASOPHILS % (AUTO) 0.1 % (0.0-2.0); EOSINOPHILS % (AUTO) 0.1 % (0.0-6.0); HEMATOCRIT 48 % (33-45); HEMOGLOBIN 16.3 g/dL (11.5-14.8); LYMPHOCYTES # (AUTO) 1.2 /CMM (0.8-4.8); LYMPHOCYTES % (AUTO) 8.1 % (20.0-44.0); MEAN CORPUSCULAR HGB CONC 34 g/dl (31.0-36.0); MEAN CORPUSCULAR VOLUME 96 fL (82-100); MONOCYTES # (AUTO) 0.7 /CMM (0.1-1.30); MONOCYTES % (AUTO) 5.1 % (2.0-12.0); NEUTROPHILS # (AUTO) 12.6 /CMM (1.8-8.9); NEUTROPHILS % (AUTO) 86.6 % (43.0-81.0); PLATELET COUNT (AUTO) 255 /CMM (150-450); RED BLOOD CELL COUNT(AUTO) 5.02 MIL/uL (4.0-5.2); WHITE BLOOD COUNT (AUTO) 14.5 K/uL (4.3-11.0)
--- NOTE | 2018-05-31 22:06 | NUR ---
PT MEDICATED BY RN PER ER MD ORDER. PT CAREGIVER AT BEDSIDE.
[2018-05-31 22:19] LABS: CALCIUM, SERUM 9.3 mg/dL (8.5-10.1); CARBON DIOXIDE 33 mmol/L (21-32); CHLORIDE 105 mmol/L (98-107); CREATININE 0.8 mg/dL (0.6-1.3); GLUCOSE 124 mg/dL (74-106); POTASSIUM 3.7 mmol/L (3.5-5.1); SODIUM SERUM 147 mmol/L (136-145); UREA NITROGEN, BLOOD 22 mg/dL (7-18)
[2018-05-31 22:23] LABS: ALANINE AMINOTRANSFERASE 28 U/L (12-78); ALBUMIN 3.8 g/dL (3.4-5.0); ALKALINE PHOSPHATASE 78 U/L (46-116); ASPARTATE AMINOTRANSFERASE 18 U/L (15-37); BILIRUBIN,DIRECT 0.1 mg/dL (0.0-0.2); BILIRUBIN,TOTAL 0.5 mg/dL (0.2-1.0); TOTAL PROTEIN, SERUM 7.3 g/dL (6.4-8.2)
[2018-05-31] MEDS ORDERED: PANTOPRAZOLE 40 MG VIAL IV ONE (22:30)
[2018-05-31] MEDS ORDERED: PANTOPRAZOLE 40 MG VIAL ONE (22:33)
--- NOTE | 2018-05-31 23:10 | NUR ---
LUIS DOYLE AT BEDSIDE TO RE-EVAL PT.
--- NOTE | 2018-06-01 00:40 | NUR ---
I&O CATH DONE, URINE SAMPLE COLLECTED AND SENT [facility] LAB.
[2018-06-01 01:23] LABS: APPEARANCE,URINE CLOUDY (CLEAR); BLOOD, URINE 3+ Ery/uL (NEGATIVE); COLOR,URINE YELLOW (YELLOW); PROTEIN,URINE 1+ mg/dl (NEGATIVE); UGLUCOSE NEGATIVE (NEGATIVE)
[2018-06-01 01:24] LABS: BILIRUBIN,URINE 1+ (NEGATIVE); KETONES,URINE TRACE (NEGATIVE); LEUKOCYTE ESTERASE ,URINE 2+ (NEGATIVE); NITRITE, URINE NEGATIVE (NEGATIVE); UROBILINOGEN,URINE 0.2 EU/dL (0.2)
[2018-06-01 01:25] LABS: BACTERIA,URINE Moderate /HPF (None Seen); RBC,URINE 81-100 /HPF (0-2); SQUAMOUS EPITHELIAL CELL,UR Rare /HPF (None Seen); WBC,URINE TOO NUMEROUS TO COUN /HPF (0-3)
[2018-06-01] MEDS ORDERED: CEFTRIAXONE 1GM BAG (ER ONLY) 1 GM/50 ML PIGGYBACK IV ONE (01:30)
--- NOTE | 2018-06-01 01:41 | NUR ---
[facility] called for transport. trip #[id number]
[2018-06-01] MEDS ORDERED: CEFTRIAXONE 1GM BAG (ER ONLY) 50 ML IV ONE (02:00)
--- NOTE | 2018-06-01 02:09 | NUR ---
TRANSPORT AT BEDSIDE REPORT GIVEN TO EMT.
[2018-06-01 02:25] VITALS: BP 134/64
== END 2018-06-01 02:26 | disposition home or self-care (01) ==
LOC: ER 21:27
DX: N39.0 Urinary tract infection, site not specified (principal); R11.2 Nausea with vomiting, unspecified; R53.1 Weakness; R94.31 Abnormal electrocardiogram [ECG] [EKG]; I10 Essential (primary) hypertension; Z86.73 Personal history of transient ischemic attack (TIA), and cerebral infarction without residual deficits
CPT/HCPCS: 36415; 71045; 74176; 80048; 80076; 81001; 85025; 85730; 86850; 87077; 87086; 87186; 93005; 96361; 96365; 96375; 99285; A4606; C9113; J0696; J2405; J7040 ×2; 81000-TC; Z7610